=== PATIENT | male | born 1930 ===

== ENCOUNTER 2018-11-06 15:04 | Inpatient (IN) | payer OTHER ==
[2018-11-06 15:05] VITALS: BMI 25.7
--- NOTE | 2018-11-06 15:57 | ED PDOC ---
HPI: General Adult Time Seen by Provider: 11/06/18 15:40 Chief Complaint (Provider): Dizziness, chest pain History Per: Patient History/Exam Limitations: no limitations Onset/Duration Of Symptoms: Days Have you had recent travel within the past 21 days to any of the following countries: [place], [place], [place] or [place]?: No Current Symptoms Are (Timing): Still Present Additional History Per: Patient Additional Complaint(s): 88yo male with history of hypertension, high cholesterol, comes to ER reporting he has had shortness of breath and dizziness x 3 days. Patient additionally reports a mild substernal chest pain since yesterday. Patient states he fell yesterday, but was able to get back up on his own; no syncope, head injury, v omiting, weakness or numbness. He reports presenting today as he "does not feel good." No additional complaints. PMD: Dr. Fcuhs Past Medical History Reviewed: Historical Data, Nursing Documentation, Vital Signs Vital Signs: Last Vital Signs Temp 98.0 F 11/06/18 15:13 Pulse 89 11/06/18 15:13 Resp 18 11/06/18 15:13 BP 175/83 H 11/06/18 15:13 Pulse Ox 99 11/06/18 15:13 - Medical History PMH: Anxiety, Fractures, HTN, Hypercholesterolemia Denies: Depression - Surgical History Other surgeries: right carotid endarterectomy - Family History Family History: States: No Known Family Hx - Social History Current smoker - smoking cessation education provided: No Alcohol: None Drugs: Denies - Immunization History Hx Tetanus Toxoid Vaccination: No Hx Influenza Vaccination: Yes Hx Pneumococcal Vaccination: Yes - Home Medications Home Medications: Ambulatory Orders Medication Instructions Recorded Allopurinol [Zyloprim] 300 mg PO DAILY 09/16/18 Apixaban [Eliquis] 2.5 mg PO Q12 09/16/18 Aspirin [Ecotrin] 81 mg PO DAILY 09/16/18 Benazepril/Hydrochlorothiazide 1 tab PO DAILY 09/16/18 [Benazepril HCl/Hydrochlorothiazide 10 mg-12.5] Mirtazapine [Remeron] 30 mg PO HS 09/16/18 Simvastatin 40 mg PO DAILY 09/16/18 Tamsulosin HCl [Flomax] 0.4 mg PO DAILY 09/16/18 Metoprolol Succinate XL [Toprol XL] 25 mg PO DAILY 11/06/18 - Allergies Allergies/Adverse Reactions: Allergies Allergy/AdvReac Type Severity Reaction Status Date / Time Penicillins Allergy Verified 09/16/18 09:15 Review of Systems ROS Statement: Except As Marked, All Systems Reviewed And Found Negative Constitutional: Negative for: Fever, Chills Eyes: Negative for: Vision Change Cardiovascular: Positive for: Chest Pain Respiratory: Positive for: Shortness of Breath Neurological: Positive for: Dizziness. Negative for: Weakness, Numbness Physical Exam - Reviewed Nursing Documentation Reviewed: Yes Vital Signs Reviewed: Yes - Physical Exam Appears: Positive for: Non-toxic, No Acute Distress Head Exam: Positive for: ATRAUMATIC, NORMAL INSPECTION, NORMOCEPHALIC Skin: Positive for: Normal Color, Dry Eye Exam: Positive for: Normal appearance, EOMI, PERRL Neck: Positive for: Normal, Supple Cardiovascular/Chest: Positive for: Regular Rate, Rhythm, Chest Non Tender. Negative for: Murmur Respiratory: Positive for: Normal Breath Sounds. Negative for: Wheezing, Respiratory Distress Pulses-Radial (L): 2+ Pulses-Radial (R): 2+ Gastrointestinal/Abdominal: Positive for: Normal Exam, Soft. Negative for: Tenderness, Guarding, Rebound Back: Positive for: Normal Inspection. Negative for: L CVA Tenderness, R CVA Tenderness Extremity: Positive for: Normal ROM. Negative for: Pedal Edema Neurologic/Psych: Positive for: Alert, Oriented. Negative for: Motor/Sensory Deficits - Laboratory Results Result Diagrams: 11/06/18 16:23 11/06/18 16:23 - ECG ECG: Positive for: Interpreted By Me, Viewed By Me ECG Rhythm: Positive for: Sinus Rhythm, Premature Ventricular Contraction, Nonspecific Changes (ST) Interpretation Of Abn EKG: LAD, LVH, PAC's Rate: 93 O2 Sat by Pulse Oximetry: 99 (RA) Pulse Ox Interpretation: Normal Medical Decision Making Medical Decision Making: Impression: Dyspnea, nonspecific chest pain, dizziness Differential: ACS, PE, CVA, BPPV Plan: -- Labs -- EKG -- CXR -- CT Head w/o contrast 1655 DDimer elevated at 348 Pending troponin 1709 Creatinine 1.8. Will admit patient for VQ scan. 1725 CXR: FINDINGS: LUNGS: Clear. PLEURA: No pneumothorax or pleural fluid seen. CARDIOVASCULAR: Atherosclerotic calcifications identified primarily aortic arch. No radiographic findings to suggest acute or significant cardiovascular disease. OSSEOUS STRUCTURES: No significant abnormalities. VISUALIZED UPPER ABDOMEN: Normal. OTHER FINDINGS: None. IMPRESSION: No active disease. No acute/significant interval changes. 1726 CT Head: FINDINGS: HEMORRHAGE: No intracranial hemorrhage. BRAIN: No mass effect or edema. No atrophy or chronic microvascular ischemic changes. VENTRICLES: Unremarkable. No hydrocephalus. CALVARIUM: Unremarkable. PARANASAL SINUSES: Unremarkable as visualized. No significant inflammatory changes. MASTOID AIR CELLS: Unremarkable as visualized. No inflammatory changes. OTHER FINDINGS: None. IMPRESSION: No acute intracranial abnormalities. No significant findings to account for the clinical presentation. Scribe Attestation: Documented by Chastity Massey acting as a scribe for Moiz Etsrada MD Provider Attestation: All medical record entries made by the Scribe were at my direction and personally dictated by me. I have reviewed the chart and agree that the record accurately reflects my personal performance of the history, physical exam, medical decision making, and the department course for this patient. I have also personally directed, reviewed, and agree with the discharge instructions and disposition. Disposition - Clinical Impression Clinical Impression: Chest pain, Elevated d-dimer - Patient ED Disposition Is Patient to be Admitted: Yes Discussed With DrJames: Jose J Cortes Doctor Will See Patient In The: Hospital Counseled Patient/Family Regarding: Studies Performed, Diagnosis, Need For Followup - Disposition Disposition Time: 17:00 Condition: FAIR - Pt Status Changed To: Hospital Disposition Of: Observation - POA Present On Arrival: None
[2018-11-06 16:39] LABS: BASO % 0.5 % (0.0-2.0); EOS % 0.2 % (0.0-4.0); HEMOGLOBIN 10.6 g/dL (12.0-18.0); LYMPH # 0.6 K/uL (1.0-4.3); LYMPH % 10.7 % (20.0-40.0); MEAN CELL VOLUME 95.9 fl (80.0-94.0); MEAN CORPUSCULAR HGB CONC 32.3 g/dL (33.0-37.0); MEAN PLATELET VOLUME 8.8 fl (7.2-11.7); MONO # 0.4 K/uL (0.0-0.8); MONO % 7.6 % (0.0-10.0); NEUT # 4.6 K/uL (1.8-7.0); RBC 3.42 Mil/uL (4.40-5.90); RED CELL DISTRIBUTION WIDTH 16.3 % (11.5-14.5); WHITE BLOOD COUNT 5.7 K/uL (4.8-10.8)
[2018-11-06 16:46] LABS: INR 1.5; PARTIAL THROMBOPLASTIN TIME 32.2 Seconds (25.6-37.1)
[2018-11-06 16:48] LABS: BLOOD UREA NITROGEN 20 mg/dl (9-20); CALCIUM 9.4 mg/dL (8.4-10.2); GFR NON-AFRICAN AMERICAN 36
--- NOTE | 2018-11-06 17:28 | RAD ---
Date of service: 11/06/2018 PROCEDURE: CHEST RADIOGRAPH, 1 VIEW HISTORY: chest pain COMPARISON: 11/30/2010 FINDINGS: LUNGS: Clear. PLEURA: No pneumothorax or pleural fluid seen. CARDIOVASCULAR: Atherosclerotic calcifications identified primarily aortic arch. No radiographic findings to suggest acute or significant cardiovascular disease. OSSEOUS STRUCTURES: No significant abnormalities. VISUALIZED UPPER ABDOMEN: Normal. OTHER FINDINGS: None. IMPRESSION: No active disease. No acute/significant interval changes.
--- NOTE | 2018-11-06 17:30 | CT ---
Date of service: 11/06/2018 PROCEDURE: CT HEAD WITHOUT CONTRAST. HISTORY: dizziness COMPARISON: None available. TECHNIQUE: Axial computed tomography images were obtained through the head/brain without intravenous contrast. Supplemental Coronal and Sagittal projections created and reviewed. Radiation dose: Total exam DLP = 814.44 mGy-cm. This CT exam was performed using one or more of the following dose reduction techniques: Automated exposure control, adjustment of the mA and/or kV according to patient size, and/or use of iterative reconstruction technique. FINDINGS: HEMORRHAGE: No intracranial hemorrhage. BRAIN: No mass effect or edema. No atrophy or chronic microvascular ischemic changes. VENTRICLES: Unremarkable. No hydrocephalus. CALVARIUM: Unremarkable. PARANASAL SINUSES: Unremarkable as visualized. No significant inflammatory changes. MASTOID AIR CELLS: Unremarkable as visualized. No inflammatory changes. OTHER FINDINGS: None. IMPRESSION: No acute intracranial abnormalities. No significant findings to account for the clinical presentation.
[2018-11-07] MEDS ORDERED: Oxycodone/Acetaminophen 5/325 mg Tab PO PRN (00:04)
[2018-11-07 05:34] LABS: TROPONIN I 0.019 ng/mL (0.00-0.120)
[2018-11-07] MEDS ORDERED: SIMVASTATIN 40 MG PO SCH (09:00)
[2018-11-07] MEDS ORDERED: HYDROCHLOROTHIAZIDE PO SCH (09:00)
[2018-11-07] MEDS ORDERED: BENAZEPRIL PO SCH (09:00)
[2018-11-07] MEDS ORDERED: [UNRECOGNIZED DRUG - OTHER] PO SCH (09:00)
--- NOTE | 2018-11-07 09:13 | CARD ---
APPROVED REPORT Date of service: 11/06/2018 EKG Measurement Heart [id number] <Conclusion> Sinus rhythm with premature atrial complexes and with occasional premature ventricular complexes Possible Left atrial enlargement Left ventricular hypertrophy with repolarization abnormality Abnormal ECG
[2018-11-07] MEDS: Metoprolol Succinate 25 mg XL Tab PO SCH (09:18)
--- NOTE | 2018-11-07 16:05 | NM ---
Date of service: 11/07/2018 COMPARISON: Not available TECHNIQUE: 35.650 mCi technetium 99-m DTPA aerosol. 4.525 mCI technetium 99-m MAA administered intravenously. FINDINGS: VENTILATION COMPONENT: Normal. PERFUSION COMPONENT: Normal. IMPRESSION: Lowprobability ventilation perfusion scan for pulmonary embolism.
--- NOTE | 2018-11-07 18:35 | CP.PCM.CON ---
History of Present Illness - History of Present Illness History of Present Illness: I was asked to see patient by Dr Cortes. Patient seen 11/07/18 [id number] Patient is a 88 year old male with HTN atrial fibrillation hypercholesterolemia who presents with dyspnea. The patient was noted to have dyspnea while at rest. he felt as if he could not get air. he denies chest pain. he presented to [facility] for further evaluation. Review of Systems - Constitutional Constitutional: absent: As Per HPI, Anorexia, Chills, Daytime Sleepiness, Excessive Sweating, Fatigue, Fever, Frequent Falls, Headache, Increased Appetite, Lethargy, Malaise, Night Sweats, Snoring, Sleep Apnea, Weight Gain, Weight Loss, Weakness, Other - EENT Eyes: absent: As Per HPI, Blind Spots, Blurred Vision, Change in Vision, Decreased Night Vision, Diplopia, Discharge, Dry Eye, Exophthalmos, Floaters, Irritation, Itchy Eyes, Loss of Peripheral Vision, Pain, Photophobia, Requires Corrective Lenses, Sees Flashes, Spots in Vision, Tunnel Vision, Other Visual Disturbances, Loss of Vision, Other Ears: absent: As Per HPI, Decreased Hearing, Ear Discharge, Ear Pain, Tinnitus, Abnormal Hearing, Disequilibrium, Dizziness, Other Nose/Mouth/Throat: absent: As Per HPI, Epistaxis, Nasal Congestion, Nasal Discharge, Nasal Obstruction, Nasal Trauma, Nose Pain, Post Nasal Drip, Sinus Pain, Sinus Pressure, Bleeding Gums, Change in Voice, Dental Pain, Dry Mouth, Dysphagia, Halitosis, Hoarsness, Lip Swelling, Mouth Lesions, Mouth Pain, Odynophagia, Sore Throat, Throat Swelling, Tongue Swelling, Facial Pain, Neck Pain, Neck Mass, Other - Cardiovascular Cardiovascular: absent: As Per HPI, Acrocyanosis, Chest Pain, Chest Pain at Rest, Chest Pain with Activity, Claudication, Diaphoresis, Dyspnea, Dyspnea on Exertion, Edema, Irregular Heart Rhythm, Pain Radiating to Arm/Neck/Jaw, Leg Edema, Leg Ulcers, Lightheadedness, Orthopnea, Palpitations, Paroxysmal Nocturn al Dyspnea, Pedal Edema, Radiating Pain, Rapid Heart Rate, Slow Heart Rate, Syncope, Other - Respiratory Respiratory: Dyspnea - Gastrointestinal Gastrointestinal: absent: As Per HPI, Abdominal Pain, Belching, Bloating, Change in Bowel Habits, Change in Stool Character, Coffee Ground Emesis, Constipation, Cramping, Diarrhea, Dyspepsia, Dysphagia, Early Satiety, Excessive Flatus, Fecal Incontinence, Heartburn, Hematemesis, Hematochezia, Loose Stools, Melena, Nausea, Odynophagia, Temesmus, Vomiting, Other - Genitourinary Genitourinary: absent: As Per HPI, Change in Urinary Stream, Difficulty Urinating, Dysuria, Flank Pain, Hematuria, Pyuria, Nocturia, Urinary Incontinence, Urinary Frequency, Urinary Hesitance, Urinary Urgency, Voiding Freq/Small Amts, Freq UTI, Hx Renal/Bladder Calculi, Hx /Renal Surgery, Bladder Distension, Other - Musculoskeletal Musculoskeletal: absent: As Per HPI, Abnormal Gait, Arthralgias, Atrophy, Back Pain, Deformity, Joint Swelling, Limited Range of Motion, Loss of Height, Muscle Cramps, Muscle Weakness, Myalgias, Neck Pain, Numbness, Radiating Pain into Limb, Stiffness, Tingling, Other - Integumentary Integumentary: absent: As Per HPI, Acne, Alopecia, Bleeding Lesions, Change in Hair, Change in Nails, Change in Pigmentation, Changing Lesions, Dry Skin, Erythema, Furuncle, Hirsutism, Lesions, New Lesions, Non-Healing Lesions, Photosensitivity, Pruritus, Rash, Skin Pain, Skin Ulcer, Sores, Striae, Swelling, Unusual Bruising, Wounds, Jaundice, Other - Neurological Neurological: absent: As Per HPI, Abnormal Gait, Abnormal Hearing, Abnormal Movements, Abnormal Speech, Behavioral Changes, Burning Sensations, Confusion, Convulsions, Disequilibrium, Dizziness, Numbness, Focal Weakness, Frequent Falls, Headaches, Lack of Coordination, Loss of Vision, Memory Loss, Paresthesias, Radicular Pain, Restless Legs, Sensory Deficit, Syncope, Tingling, Tremor, Vertigo, Weakness, Other Visual Disturbances, Other - Psychiatric Psychiatric: absent: As Per HPI, Abnormal Sleep Pattern, Anhedonia, Anxiety, Auditory Hallucinations, Behavioral Changes, Change in Appetite, Change in Libido, Confusion, Depression, Difficulty Concentrating, Hallucinations, Homicidal Ideation, Hopelessness, Irritability, Memory Loss, Mood Swings, Panic Attacks, Paranoia, Suicidal Ideation, Visual Hallucinations, Tactile Hallucinations, Other - Endocrine Endocrine: absent: As Per HPI, Change in Body Appearance, Change in Libido, Cold Intolorance, Deepening of Voice, Excessive Sweating, Fatigue, Flushing, Heat Intolorance, Increase in Ring/Shoe/Hat Size, Palpitations, Polydipsia, Polyphagia, Polyuria, Other - Hematologic/Lymphatic Hematologic: absent: As Per HPI, Easy Bleeding, Easy Bruising, Lymphadenopathy, Other Past Patient History - Past Medical History & Family History Past Medical History?: Yes - Past Social History Smoking Status: Former Smoker - CARDIAC Hx Cardiac Disorders: Yes - MUSCULOSKELETAL/RHEUMATOLOGICAL Hx Musculoskeletal Disorders: Yes Hx Falls: Yes - PSYCHIATRIC Hx Psychophysiologic Disorder: Yes Hx Substance Use: No - SURGICAL HISTORY Hx Musculoskeletal Surgery: Yes (rt hip replacement) Other/Comment: carotid endarterectomy - ANESTHESIA Hx Anesthesia: Yes Meds Allergies/Adverse Reactions: Allergies Allergy/AdvReac Type Severity Reaction Status Date / Time Penicillins Allergy Verified 09/16/18 09:15 - Medications Medications: Current Medications Acetaminophen (Tylenol 325mg Tab) 650 mg PO Q4 PRN PRN Reason: Pain, Mild (1-3) Allopurinol (Zyloprim) 300 mg PO DAILY [facility] Last Admin: 11/07/18 09:16 Dose: 300 mg Apixaban (Eliquis) 2.5 mg PO BID [facility]; Protocol Last Admin: 11/07/18 17:14 Dose: 2.5 mg Aspirin (Ecotrin) 81 mg PO DAILY [facility] Last Admin: 11/07/18 09:16 Dose: 81 mg Atorvastatin Calcium (Lipitor) 20 mg PO DAILY [facility] Last Admin: 11/07/18 09:17 Dose: 20 mg Hydrochlorothiazide (Microzide) 12.5 mg PO DAILY [facility] Last Admin: 11/07/18 09:16 Dose: 12.5 mg Lisinopril (Zestril) 10 mg PO DAILY [facility] Last Admin: 11/07/18 09:19 Dose: 10 mg Metoprolol Succinate (Toprol Xl) 25 mg PO DAILY [facility] Last Admin: 11/07/18 09:18 Dose: 25 mg Mirtazapine (Remeron) 30 mg PO HS [facility] Last Admin: 11/06/18 23:52 Dose: 30 mg Oxycodone/Acetaminophen (Percocet 5/325 Mg Tab) 1 tab PO Q6 PRN PRN Reason: Pain, moderate (4-7) Stop: 11/10/18 00:05 Tamsulosin HCl (Flomax) 0.4 mg PO DAILY [facility] Last Admin: 11/07/18 09:17 Dose: 0.4 mg Physical Exam - Constitutional Appears: Non-toxic - Head Exam Head Exam: NORMAL INSPECTION - Eye Exam Eye Exam: Normal appearance - ENT Exam ENT Exam: Mucous Membranes Moist - Neck Exam Neck exam: Positive for: Full Rom - Respiratory Exam Respiratory Exam: Decreased Breath Sounds - Cardiovascular Exam Cardiovascular Exam: REGULAR RHYTHM - GI/Abdominal Exam GI & Abdominal Exam: Normal Bowel Sounds - Rectal Exam Rectal Exam: Deferred - Extremities Exam Extremities exam: Negative for: pedal edema - Back Exam Back exam: NORMAL INSPECTION - Neurological Exam Neurological exam: Alert, Oriented x3 - Psychiatric Exam Psychiatric exam: Normal Affect - Skin Skin Exam: Normal Color Results - Vital Signs Recent Vital Signs: Last Vital Signs Temp 97.9 F 11/07/18 16:05 Pulse 65 11/07/18 16:05 Resp 20 11/07/18 16:05 BP 144/64 11/07/18 16:05 Pulse Ox 96 11/07/18 16:05 - Labs Result Diagrams: 11/06/18 16:23 11/06/18 16:23 Labs: Laboratory Results - last 24 hr 11/07/18 11/07/18 04:25 08:05 Troponin I 0.0190 Triglycerides 108 Cholesterol 135 LDL Cholesterol Direct 75 HDL Cholesterol 29 L Thyroxine (T4) 5.67 TSH 3rd Generation 1.19 - EKG Data EKG Interpreted by: Myself Assessment & Plan (1) Dyspnea Assessment and Plan: v/q scan low probability. on anticoagulation Status: Acute (2) HTN (hypertension) Assessment and Plan: blood pressure is controlled. medical therapy Status: Acute (3) Paroxysmal atrial fibrillation Assessment and Plan: maintain current medical therapy Status: Acute
--- NOTE | 2018-11-07 19:46 | HP ---
ADMIT HISTORY AND PHYSICAL HISTORY OF PRESENT ILLNESS: Mr. Mclaughlin is an 88-year-old male, who was admitted via the emergency room because of chest pains, shortness of breath for 3 days prior to presentation, worse on the day of admission. He was seen in the emergency room and reported midsternal chest pains and what appears to have improved since admission. He denies palpitations. Denies nausea or vomiting. PAST MEDICAL HISTORY: Remarkable for hypertension, hyperlipidemia, right carotid endarterectomy, deep venous thrombosis of the right lower extremity in the past and anxiety disorder. FAMILY HISTORY: Noncontributory. SOCIAL HISTORY: Does not drink or smoke. REVIEW OF SYSTEMS: Essentially unremarkable. PHYSICAL EXAMINATION: GENERAL: The patient is alert and oriented, appears to be comfortable at present. VITAL SIGNS: Blood pressure 175/83 with a pulse of 89, respiratory rate 18, he is febrile. O2 sat 99% on room air. SKIN: Shows fair turgor. HEENT: Pupils are equal and react to light and accommodation. JVP flat. There is scar of right carotid endarterectomy. LUNGS: Clear. HEART: Regular. No murmurs or gallop. ABDOMEN: Soft, nontender, no organomegaly. EXTREMITIES: Shows no edema or cyanosis. CENTRAL NERVOUS SYSTEM: Exam grossly intact. LABORATORY DATA: Reviewed. IMPRESSION: Chest pain, one has to rule out acute coronary syndrome. Also rule out pulmonary embolism. Patient who has elevated D-dimer and chest pains, history of hyperlipidemia, history of hypertension, history of anxiety disorder. PLAN: The plan is cardiac evaluation. We will obtain VQ scan of the lung to rule out pulmonary emboli. Unable to perform CT angiogram because the patient has elevated creatinine. Will continue with oxygen therapy. The patient is already on Eliquis; will continue Eliquis therapy, anti-lipids also ordered and antihypertensive medications. Will maintain the patient on telemetry until workup is complete. Jose J Cortes MD
[2018-11-08 04:59] VITALS: O2SAT 98
[2018-11-08 08:02] VITALS: RESP 18
[2018-11-08] MEDS: Metoprolol Succinate 25 mg XL Tab PO SCH (09:37)
--- NOTE | 2018-11-08 10:27 | CP.PCM.DIS ---
Provider - Provider Date of Admission: 11/07/18 08:10 Attending physician: Jose J Cortes MD Consults: 11/07/18 00:26 Nursing Referral for Wound Care Routine Comment: Physician Instructions: Reason For Exam: loew britton scale Social Work Referral Routine Comment: per protocol Physician Instructions: Reason For Exam: per protocol 11/07/18 08:05 Cardiology Consult Routine Comment: Consulting Provider: Anurag Louis Consulting Physician: Anurag Louis Reason for Consult: chest pain/arrythmias Time Spent in preparation of Discharge (in minutes): 35 Diagnosis - Discharge Diagnosis (1) H/O carotid endarterectomy Status: Resolved (2) History of deep venous thrombosis Status: Resolved (3) Chest pain Status: Acute (4) Dyspnea Status: Resolved (5) Elevated d-dimer Status: Acute Comment: V/Q SCAN--LOW PROBABILITY FOR PE. WILL CONTINUE ORAL ANTICOAGULATION RX (6) HTN (hypertension) Status: Chronic Comment: STABLE (7) Paroxysmal atrial fibrillation Status: Chronic Comment: TELE--?SHORT RUN OF VTACH. WILL CONTINUE ANTIARRYTHMIC RX AND HAVE PT FOLLOW UP WITH CARDIOLOGY Hospital Course - Lab Results Lab Results: Most Recent Lab Values WBC 5.7 K/uL (4.8-10.8) 11/06/18 16:23 RBC 3.42 Mil/uL (4.40-5.90) L 11/06/18 16:23 Hgb 10.6 g/dL (12.0-18.0) L 11/06/18 16:23 Hct 32.8 % (35.0-51.0) L 11/06/18 16:23 MCV 95.9 fl (80.0-94.0) H 11/06/18 16:23 MCH 31.0 pg (27.0-31.0) 11/06/18 16:23 MCHC 32.3 g/dL (33.0-37.0) L 11/06/18 16:23 RDW 16.3 % (11.5-14.5) H 11/06/18 16:23 Plt Count 184 K/uL (130-400) 11/06/18 16:23 MPV 8.8 fl (7.2-11.7) 11/06/18 16:23 Neut % (Auto) 81.0 % (50.0-75.0) H 11/06/18 16:23 Lymph % (Auto) 10.7 % (20.0-40.0) L 11/06/18 16:23 Yell % (Auto) 7.6 % (0.0-10.0) 11/06/18 16:23 Eos % (Auto) 0.2 % (0.0-4.0) 11/06/18 16:23 Baso % (Auto) 0.5 % (0.0-2.0) 11/06/18 16:23 Neut # (Auto) 4.6 K/uL (1.8-7.0) 11/06/18 16:23 Lymph # (Auto) 0.6 K/uL (1.0-4.3) L 11/06/18 16:23 Yell # (Auto) 0.4 K/uL (0.0-0.8) 11/06/18 16:23 Eos # (Auto) 0.0 K/uL (0.0-0.7) 11/06/18 16:23 Baso # (Auto) 0.0 K/uL (0.0-0.2) 11/06/18 16:23 PT 17.0 Seconds (9.8-13.1) H 11/06/18 16:23 INR 1.5 11/06/18 16:23 APTT 32.2 Seconds (25.6-37.1) 11/06/18 16:23 D-Dimer, Quantitative 348 ng/mlDDU (0-230) H 11/06/18 16:23 Sodium 142 mmol/l (132-148) 11/06/18 16:23 Potassium 4.0 MMOL/L (3.6-5.0) 11/06/18 16:23 Chloride 102 mmol/L (98-107) 11/06/18 16:23 Carbon Dioxide 23 mmol/L (22-30) 11/06/18 16:23 Anion Gap 21 (10-20) H 11/06/18 16:23 BUN 20 mg/dl (9-20) 11/06/18 16:23 Creatinine 1.8 mg/dl (0.8-1.5) H 11/06/18 16:23 Est GFR ( Amer) 43 11/06/18 16:23 Est GFR (Non-Af Amer) 36 11/06/18 16:23 Random Glucose 104 mg/dL (75-110) 11/06/18 16:23 Calcium 9.4 mg/dL (8.4-10.2) 11/06/18 16:23 Troponin I 0.0190 ng/mL (0.00-0.120) 11/07/18 04:25 Triglycerides 108 mg/DL (0-149) 11/07/18 04:25 Cholesterol 135 mg/dL (0-199) 11/07/18 04:25 LDL Cholesterol Direct 75 mg/dL (0-129) 11/07/18 04:25 HDL Cholesterol 29 MG/DL (30-70) L 11/07/18 04:25 Thyroxine (T4) 5.67 ug/dl (5.5-11.0) 11/07/18 08:05 TSH 3rd Generation 1.19 mIU/ML (0.46-4.68) 11/07/18 08:05 - Hospital Course Hospital Course: CHEST PAIN RESOLVED SOB RESOLVED CARDIAC EVAL APPRECIATED Discharge Exam - Head Exam Head Exam: NORMAL INSPECTION - Eye Exam Eye Exam: EOMI, Normal appearance, PERRL Pupil Exam: NORMAL ACCOMODATION, PERRL - Cardiovascular Exam Cardiovascular Exam: Irregular Rhythm - GI/Abdominal Exam GI & Abdominal Exam: Normal Bowel Sounds - Rectal Exam Rectal Exam: NORMAL INSPECTION - Neurological Exam Neurological exam: Alert, CN II-XII Intact, Normal Gait, Oriented x3, Reflexes Normal - Psychiatric Exam Psychiatric exam: Normal Affect, Normal Mood - Skin Skin Exam: Dry, Intact, Normal Color, Warm Discharge Plan - Follow Up Plan Condition: STABLE Disposition: HOME/ ROUTINE Instructions: Acute Bronchitis, Adult (DC), Chest Pain (DC) Referrals: Cristobal Fuchs Jr., MD [Family Provider] - Jose J Cortes MD [Staff Provider] - Anurag Louis MD [Staff Provider] -
[2018-11-08 12:17] VITALS: BP 115/60; PULSE 66; TEMP 98
== END 2018-11-08 14:00 | disposition home or self-care (01) | DRG 313 ==
LOC: H.ER 15:04 → H.ERHOLD 17:17 → H.TEL 23:00 → OBSVTOIN 11-07 08:10
PROVIDERS: ADMIT Internal Medicine Pulmonary Disease; ATTEND Internal Medicine Pulmonary Disease
DX: R07.89 Other chest pain (principal); I47.2 Ventricular tachycardia; R06.02 Shortness of breath; I48.0 Paroxysmal atrial fibrillation; Z79.01 Long term (current) use of anticoagulants; E78.00 Pure hypercholesterolemia, unspecified; E78.5 Hyperlipidemia, unspecified; I10 Essential (primary) hypertension; R79.1 Abnormal coagulation profile; Z91.81 History of falling; Z79.82 Long term (current) use of aspirin; Z86.718 Personal history of other venous thrombosis and embolism; Z87.891 Personal history of nicotine dependence; Z96.641 Presence of right artificial hip joint; F41.9 Anxiety disorder, unspecified; Z79.899 Other long term (current) drug therapy